=== PATIENT | male | born 1995 | race African-American/Black ===

== ENCOUNTER 2018-11-08 02:18 | Observation (INO) | payer SELFPAY ==
--- NOTE | 2018-11-08 02:39 | ED ---
Bite Injury/Animal - HPI Summary HPI Summary: The patient is a 23 y/o M presenting to [facility] with a chief complaint of multiple bite wounds on his left wrist unwarranted from his dog this morning at 0046. He states that they were getting ready for bed when the four year-old dog suddenly started growling, then clenched onto his wrist with a series of bites involving some twisting. There are six puncture wounds primarily near the distal left wrist and some superficial cuts on the upper forearm. There is swelling and erythema on the radial side of the wrist where the deepest puncture has occurred. He denies numbness or tingling in the hand, but there is decreased ROM of the wrist with supination and pronation as well as flexion and extension. There is mild pain with movement at the elbow, and the pain radiates to the left shoulder. The aching pain is currently rated 5/10 in severity. He takes the blood thinner Diclofenac for herniated discs, so the wounds have not stopped bleeding since incident. The dog is vaccinated for rabies, and the patient is UTD on his tetanus shot. The dog has never bite anyone before this. - History of Current Complaint Chief Complaint: EDAnimalBite Stated Complaint: DOG BITE PER PT Time Seen by Provider: 11/08/18 02:28 Hx Obtained From: Patient Onset of Injury: Happened hours ago - at 0046, Still Present Type of Bite: Animal - dog, owned by patient Hx of Bite: Unprovoked Has Animal Been Immunized?: Yes Severity Initially: Severe Severity Currently: Severe Pain Intensity: 5 Pain Scale Used: 0-10 Numeric Character: Puncture Aggravating Factor(s): Other - supination/pronation and flexion/extension of wrist, movement of elbow Alleviating Factor(s): Rest Associated Signs And Symptoms: Positive: Erythema - near site of swelling at largest puncture wound, Swelling - at largest puncture wound, Limited ROM - difficulty with supination/pronation and flexion/extension of wrist. Negative: Numbness/Tingling - Allergies/Home Medications Allergies/Adverse Reactions: Allergies Allergy/AdvReac Type Severity Reaction Status Date / Time haloperidol [From Haldol] Allergy Unknown Verified 11/08/18 02:20 Reaction Details Home Medications: Home Medications Cyclobenzaprine TAB* [Flexeril 10 MG TAB*] 5 mg PO BID 11/08/18 [History Confirmed 11/08/18] Diclofenac Sodium EC TAB* [Voltaren EC TAB*] 50 mg PO BID 11/08/18 [History Confirmed 11/08/18] FLUoxetine CAP* [Prozac CAP*] 40 mg PO DAILY 11/08/18 [History Confirmed ] Gabapentin 400 mg PO BID PRN 11/08/18 [History Confirmed 11/08/18] Methocarbamol TAB* [Robaxin 500 MG TAB*] 1,500 mg PO BID 11/08/18 [History Confirmed 11/08/18] Propranolol TAB* [Inderal TAB*] 10 mg PO TID 11/08/18 [History Confirmed ] clonazePAM TAB(*) [Klonopin TAB(*)] 0.5 mg PO QID 11/08/18 [History Confirmed ] PMH/Surg Hx/FS Hx/Imm Hx Endocrine/Hematology History: Denies: Hx Diabetes Cardiovascular History: Denies: Hx Hypertension Musculoskeletal History: Reports: Hx Back Problems - herniated disc Opthamlomology History: Denies: Hx Legally Blind Psychiatric History: Reports: Hx Anxiety, Hx Depression, Hx Post Traumatic Stress Disorder - Surgical History Surgery Procedure, Year, and Place: none Infectious Disease History: No Infectious Disease History: Denies: Traveled Outside the [place] in Last 30 Days - Family History Known Family History: Negative: Cardiac Disease, Hypertension - Social History Alcohol Use: Rare Hx Substance Use: No Substance Use Type: Reports: None Hx Tobacco Use: No Smoking Status (MU): Never Smoked Tobacco Do You Chew or Dip Tobacco: No Have You Chewed or Dipped Tobacco in the LAST YEAR: No Review of Systems Positive: Decreased ROM - with supination/pronation and flexion/extension in the wrist, Other - burning pain from bite radiating from left wrist to left shoulder Positive: Other - five bite wounds primarily to left wrist and extending to the lower half of the forearm, swelling and erythema with active bleeding Negative: Numbness - or tingling All Other Systems Reviewed And Are Negative: Yes Physical Exam - Summary Physical Exam Summary: Appearance: well appearing, no pain distress Skin: warm, dry, reflects adequate perfusion Head/face: normal Eyes: EOMI, CHINEDU ENT: mucous membranes moist Neck: supple, non-tender Respiratory: CTA, breath sounds present Cardiovascular: RRR, pulses symmetrical Abdomen: non-tender, soft Bowel Sounds: present Musculoskeletal: Five linear puncture wounds near the left distal wrist measuring approximately 1cm in length, One circular coin-shaped puncture wound with swelling measuring 1cm in diameter on the distal radius, Superficial scattered abrasions on lower half of left forearm, decreased ROM in the left wrist in any direction Neuro: normal, sensory motor intact, A&Ox3 Triage Information Reviewed: Yes Vital Signs On Initial Exam: Initial Vitals Temp Pulse Resp BP Pulse Ox 98.2 F 91 16 147/83 97 11/08/18 02:21 11/08/18 02:21 11/08/18 02:21 11/08/18 02:21 11/08/18 02:21 Vital Signs Reviewed: Yes Procedures - Procedure Summary Procedure Summary: Wound care note: Patient sustained multiple puncture wounds to his left forearm from dog bite. A timeout was performed. Each was anesthetized with a total of 6 cc of 2% lidocaine with epinephrine. Each of the 6 puncture wounds was irrigated extensively by sterile saline through a 60 cc syringe and 18-gauge angiocatheter into each wound. A total of 1000 cc of irrigant was used. The forearm was then dressed with Kerlix wrap. He tolerated this well without complication. Diagnostics - Vital Signs Vital Signs Temp Pulse Resp BP Pulse Ox 11/08/18 02:21 98.2 F 91 16 147/83 97 - Laboratory Lab Statement: Any lab studies that have been ordered have been reviewed, and results considered in the medical decision making process. - Radiology Left Forearm XR Radiology Interpretation Completed By: Radiologist Summary of Radiographic Findings: Depressed fracture of distal radius. Small amount of gas in soft tissue. ED physician has reviewed this report. Bite Injury Course/Dx - Course Course Of Treatment: Nurses notes reviewed. Multiple wounds in the left forearm with exquisite tenderness. X-ray shows gas in the soft tissues and a depressed fracture in the distal radius consistent with tooth injury. IV ampicillin was given here and the orthopedic surgeon was contacted. The wounds were irrigated extensively. Orthopedic surgeon will, at 6 AM and evaluate for possible operative plan versus admission and IV antibiotics. - Diagnoses Differential Diagnosis/HQI/PQRI: Positive: Crush Injury, Fracture, Laceration, Puncture Provider Diagnosis: Distal radial fracture, Dog bite of left forearm, Crushing injury of forearm, left - Provider Notifications Discussed Care Of Patient With: Abilio Andino - orthopedics Time Discussed With Above Provider: 04:00 Instructed by Provider To: Other - I consulted Dr. Andino to review the patient 's XR. He will call back to reconsult. At 0420, Dr. Andino returns the call and accepts surgical consult. Dr. Andino is speaking with the patient in the ED at 0630. Discharge - Sign-Out/Discharge Documenting (check all that apply): Patient Departure - Patient will be [place] [facility] [place]. Patient Received Moderate/Deep Sedation with Procedure: No - Discharge Plan Condition: Fair Disposition: ADMITTED TO [facility] Referrals: [facility] [Outside] [facility] [Outside] - Billing Disposition and Condition Condition: FAIR Disposition: Admitted to [facility] - Attestation Statements Document Initiated by Munir: Yes Documenting Scribe: Rena Ma Provider For Whom Munir is Documenting (Include Credential): Dr. Mxa Talavera MD Scribe Attestation: IRena, scribed for Dr. Max Talavera MD on 11/08/18 at 0653. Scribe Documentation Reviewed: Yes Provider Attestation: The documentation as recorded by the Rena mccain accurately reflects the service I personally performed and the decisions made by me, Dr. Max Talavera MD Status of Scribe Document: Viewed
[2018-11-08] MEDS ORDERED: Lidocaine 2% EPI 1:200000 MPF*10-20 ML VIAL ONE (02:52)
[2018-11-08] MEDS ORDERED: Lidocaine 2% EPI 1:200000 MPF* 10 ML VIAL INJ ONE (02:52)
[2018-11-08] MEDS ORDERED: Ampicillin ADVAN(*) 2 GM in NS 0.9% 100 ML* 100 ML IVPB ONE (02:53)
[2018-11-08] MEDS ORDERED: Morphine 4 MG/ML VIAL (1 ml) 4 MG/ML VIAL IV ONE (02:53)
[2018-11-08] MEDS ORDERED: Ketorolac INJ* 30 MG/ML 1 ML VIAL IV PUSH ONE (02:53)
[2018-11-08] MEDS ORDERED: HYDROcodone/ACETAMIN 5-325 MG* 1 TAB PO ONE (03:54)
[2018-11-08] MEDS ORDERED: HYDROmorphone INJ1* 1 MG/ML SYRINGE IV ONE (05:05)
[2018-11-08] MEDS ORDERED: diPHENhydraMINE IV* 50 MG/ML 1 ml VIAL (BENADRYL) IV PRN (07:10)
[2018-11-08] MEDS ORDERED: Ondansetron INJ* 2 MG/ML VIAL IV PRN (07:10)
[2018-11-08] MEDS ORDERED: Acetaminophen TAB* 325 MG PO PRN (07:10)
[2018-11-08] MEDS ORDERED: Zosyn per Pharmacy* NOTE FOLLOW UP SCH (08:00)
[2018-11-08] MEDS: Morphine 4 MG/ML VIAL (1 ml) 4 MG/ML VIAL IV PRN ×3 (08:01→23:56)
[2018-11-08] MEDS: NS 0.9% 1000 ML** 1,000 ML IV SCH ×2 (08:52→22:34)
--- NOTE | 2018-11-08 08:52 | HP ---
HISTORY AND PHYSICAL: DATE OF ADMISSION: 11/08/18 REASON FOR ADMISSION: Dog bite, left wrist. HISTORY: The patient is a 23-year-old man, right hand dominant, with multiple medical problems, who owns a pit bull, who just after midnight this morning was bit by his pit bull. Pit bull held on for some period of time. Multiple lacerations were noted. The patient was brought to the emergency room. Emergency room noted multiple lacerations. Got x-rays which showed a fracture. Orthopedic Surgery was called. The patient was given antibiotics immediately in the emergency room, ampicillin. Lacerations were washed out by emergency room staff. The patient does not know if he had any numbness prior to local anesthesia being infused. The patient reports pain decreased with pain control narcotic medications received in the emergency room. The patient reports the pit bull's vaccinations were up-to-date and he had appropriate rabies shots. 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 PAST MEDICAL HISTORY: PTSD, anxiety, depression, paranoia, recent past lumbar spine disk herniation. PAST SURGICAL HISTORY: Adenoidectomy, excision of wisdom teeth. MEDICATIONS: 1. Methocarbamol. 2. Diclofenac p.r.n. 3. Gabapentin. 4. Clonazepam. 5. Fluoxetine. 6. Propranolol. 7. Cyclobenzaprine. ALLERGIES: HALDOL (dystonic reaction). SOCIAL HISTORY: The patient lives with a roommate. He does not smoke. He is unemployed. He owns a pit bull, and the pit bull's shots are up-to-date. The patient does not smoke cigarettes. REVIEW OF SYSTEMS: No headache, shortness of breath, chest pain, or heart palpitations. No other joint pain. The patient does have lower back pain. No other numbness and tingling besides about the radial aspect of the left wrist and hand. PHYSICAL EXAMINATION GENERAL: No acute distress, alert and oriented, appropriate mood and affect, appropriate dress and hygiene, nonantalgic gait, well-coordinated bilateral upper and lower extremities. Nontoxic appearing. VITAL SIGNS: Pulse rate 75, blood pressure 97/62 with an O2 sat of 96%. Body temperature 98.2 degrees Fahrenheit temporal. EXTREMITIES: Left upper extremity exam shows multiple lacerations about the left wrist or just proximal to the radiocarpal joint. The largest is directly ulnar and then there are lacerations directly radial and radial dorsal. No significant drainage from these wounds. No significant pain with passive range of motion of the wrist joint and passive range of motion of the fingers, all fingers left hand. Sensory nerve exam reveals decreased sensation in the distribution of the radial sensory nerve. Intact sensation to the median nerve and the dorsal sensory branch of the ulnar nerve and the ulnar nerve proper. Motor intact to all distal motor branches, AIN, PIN, ulnar nerve. The patient is able to flex and extend all fingers. With the thumb extended, the patient had good tension on the EPL as well as on the EPB and the APL. EPB and APL tendons are close to that radial most laceration site. IMAGING: X-ray views of the patient's left wrist, 2 views, obtained in the emergency room were reviewed by me. These are actually forearm views and not wrist views. These show what look to be a small fracture, likely indention, impaction type focal fracture about the radial aspect of the distal radius, likely corresponding to that location of the radial laceration site. ASSESSMENT: 1. Dog bite injury, left distal forearm or wrist. 2. Open fracture, left distal radius. PLAN: 1. This dog bite injury has already been treated with irrigation in the emergency room and antibiotics, IV, appropriately. 2. The patient has no sign of clear tendon or neurovascular injury besides a possible injury to the superficial radial nerve. 3. While treatment of these is not necessarily codified, when fractures in the setting of bite injuries are significant enough to require fixation, they are treated as open fractures. This fracture will certainly not require a fixation ; however, the involvement of bone in the dog bite makes it reasonable to do a debridement and a more thorough irrigation in the operating room. 4. I placed an iodine-soaked gauze over the lacerations and followed that with a dry sterile dressing. 5. The patient will be placed in a removable wrist brace or a volar splint for comfort. 6. The patient will be allowed to eat from now until 8 a.m. and then will be n.p.o. 7. I will plan on taking the patient to the operating room at the end of the afternoon for an irrigation, debridement, and exploration left distal forearm. 8. The patient will be admitted to my service preoperatively. He will be n.p.o. after 8 a.m. We will control his pain. I will switch him to a broader coverage Zosyn antibiotic as we do not have Unasyn at this hospital. The patient can be restarted on home meds. [id number]/[facility] #: [id number] [facility]
[2018-11-08] MEDS ORDERED: Piperacillin/Tazobac ADVAN(*) 3.375 GM in NS 0.9% 100 ML* 100 ML IVPB ONE (09:30)
[2018-11-08] MEDS: ZOSYN 3.375 GM Q8H per EXTENDED INFUSION IVPB SCH ×4 (16:00→22:34)
[2018-11-08] MEDS ORDERED: Propranolol TAB* 10 MG PO ONE (16:56)
[2018-11-08] MEDS ORDERED: Rocuronium* 10 MG/ML VIAL ONE (17:04)
[2018-11-08] MEDS ORDERED: fentaNYL* 50 MCG/ML 5 ML VIAL (250 MCG VIAL) ONE (17:04)
[2018-11-08] MEDS ORDERED: Midazolam* 1 MG/ML 5 ML VIAL (5 MG) ONE (17:04)
[2018-11-08] MEDS ORDERED: Lidocaine 2% PF * 5 ML VIAL ONE (17:05)
[2018-11-08] MEDS ORDERED: Propofol* 10 MG/ML 20 ML BTL ONE (17:05)
[2018-11-08] MEDS ORDERED: Ketorolac INJ* 30 MG/ML 1 ML VIAL IV PRN (18:24)
[2018-11-08] MEDS ORDERED: Naloxone* 0.4 MG/ML 1 ML VIAL IV PRN (18:24)
[2018-11-08] MEDS ORDERED: DiMENhydriNATE IV* 50 MG/ML VIAL IV PUSH PRN (18:24)
[2018-11-08] MEDS ORDERED: Acetaminophen IV 1GM/100ML * 1,000 MG/100 ML VIAL IVPB ONE (18:24)
[2018-11-08] MEDS ORDERED: Ondansetron INJ* 2 MG/ML VIAL ONE (18:34)
[2018-11-08] MEDS ORDERED: Neostigmine Methylsulfate* 3 MG/3 ML SYRINGE ONE (18:37)
[2018-11-08] MEDS ORDERED: Glycopyrrolate IV* 0.2 MG/ML 1 ML VIAL ONE (18:37)
[2018-11-08] MEDS ORDERED: Gabapentin CAP(*) 400 MG PO PRN (19:00)
[2018-11-08] MEDS ORDERED: Ketorolac INJ* 30 MG/ML 1 ML VIAL ONE (19:11)
[2018-11-08] MEDS ORDERED: Acetaminophen IV 1GM/100ML * 100 ML ONE (19:11)
[2018-11-08] MEDS ORDERED: fentaNYL* 50 MCG/ML 2 ML VIAL (100 MCG VIAL) ONE (19:11)
[2018-11-08] MEDS: fentaNYL* 50 MCG/ML 2 ML VIAL (100 MCG VIAL) IV PRN ×2 (19:18→19:37)
[2018-11-08] MEDS: oxyCODONE/Acetamin 5/325 MG* TAB PO PRN (20:33)
--- NOTE | 2018-11-09 00:30 | OP ---
OPERATIVE REPORT: DATE OF OPERATION: 11/08/18 - Inpatient, room 415-02 DATE OF : 89 SURGEON: Abilio Andino MD CONTINUOUS MINING MACHINE COAL MINER: ALENA Carr A physician anesthesiology physician assistant was required for the length of the procedure for assistance with positioning, retraction, irrigation, and closure. ANESTHESIOLOGIST: Dr. Telly Ferro. ANESTHESIA: General anesthesia. PRE-OP DIAGNOSES: 1. Open fracture, left distal radius. 2. Multiple dog bite wounds, open, left distal forearm. POST-OP DIAGNOSES: 1. Open fracture, left distal radius. 2. Multiple dog bite wounds, open, left distal forearm. OPERATIVE PROCEDURE: Irrigation and debridement left distal forearm, multiple incisions, including debridement skin, subcutaneous tissue, muscle, and bone. ANTIBIOTICS: Zosyn 3.75 g scheduled dose, infusing just prior to incision. IV FLUIDS: See Anesthesia note. TOURNIQUET TIME: 37 minutes at 250 mmHg, left upper arm. [id number] TIME: 33 minutes. SPECIMEN: 1. Small sample of bone from the fracture site. 2. Anaerobic and aerobic cultures from a variety of wounds. IMPLANTS: Iodoform packing, 0.25 inch, was placed into 5 different incision sites where there had been lacerations. COMPLICATIONS: None. ESTIMATED BLOOD LOSS: Minimal. INDICATION FOR THE PROCEDURE: The patient is a 23-year-old man, right-hand dominant, without multiple medical problems, who was bit by a pit bull early this morning just after midnight. The pit bull held on for some period of time. Multiple lacerations. The patient was brought to the emergency room. In the emergency room, there was noted a sort of impaction puncture fracture of the distal radius along its radial aspect. Orthopedic Surgery was called. I was on- call overnight. I came in to see the patient just at the start of the day and saw him around 6 a.m. I noted no purulence. Multiple lacerations about the left distal forearm and a fracture on x-ray making this an open fracture. The ED staff had already provided a dose of ampicillin IV antibiotics and irrigated the wounds in the emergency room. The patient has multiple psychiatric diagnoses, but no significant past medical history otherwise. I admitted the patient to my service, wiped the incisions with Providone/Iodine and placed 4x4s with Providone/Iodine on all open lacerations and a compressive dressing followed by a removable wrist brace. The patient was kept n.p.o. Discussed with the patient preoperatively the potential risks and infections including bleeding, infection, nerve or blood vessel injury, persistent infection, osteomyelitis, need for reoperation. DESCRIPTION OF PROCEDURE: The patient signed an operative consent in preoperative holding. Operative extremity was marked in preoperative holding. The patient was taken back to the operating room and the patient was kept on a stretcher. The patient was sedated and intubated. Hand table was applied. Tourniquet was applied around the left upper arm. Left upper extremity was prepped and draped. Surgical time-out was performed. Esmarch applied and tourniquet was elevated. I had determined preoperatively that the radial laceration about the distal forearm was the one that would communicate with the open fracture. I extended both proximal and distal to 5 different lacerations around the radial , dorsal, and ulnar distal forearm, being cognizant of all relevant anatomy. I dissected down into each. With regards to the radial laceration site, I extended that laceration a little bit more proximal and distal and extended and found a path down to the open fracture. It was quite an impressive divot in the bone, wider of diameter than the freer elevator. I used curettes to debride around that hole in the bone. The hole in the bone did not go all the way through 2 cortices. There were no tooth fragments or any other foreign body visible. I took a bit of bone that I removed with a curette and we sent that to pathology. I used culture swabs, aerobic and anaerobic in multiple wounds, with fluid from multiple wounds. I irrigated with cystoscopy tubing all 5 open laceration wound sites. We used a total of 3 L to do this. We then closed loosely each one of the 5 laceration sites. We did this after placing Iodoform packing into each one of them. The radial laceration site had an Iodoform packing traveling down the path to bone. I placed dressing consisting of Adaptic, 4x4s, sterile Webril, non-sterile Webril and a volar plaster splint. The patient was awakened, extubated and brought to the PACU. DISPOSITION: The patient was readmitted to our service. He will be continued on IV antibiotics, Zosyn. We will continue his psychiatric medications. Pain control as needed with oral and IV pain medications. The patient will rest in a volar plaster splint with arm elevated. We will discharge the patient on oral antibiotics when he is clearly improved. The patient will then follow up in the office for wound checks. [id number]/[facility] #: [id number] [facility]
[2018-11-09] MEDS: oxyCODONE/Acetamin 5/325 MG* TAB PO PRN ×3 (03:35→18:17)
[2018-11-09] MEDS: ZOSYN 3.375 GM Q8H per EXTENDED INFUSION IVPB SCH ×6 (06:25→22:26)
[2018-11-09] MEDS: Morphine 4 MG/ML VIAL (1 ml) 4 MG/ML VIAL IV PRN ×2 (08:45→22:24)
[2018-11-09] MEDS: Methocarbamol TAB* 500 MG PO SCH ×2 (08:49→21:49)
[2018-11-09] MEDS: FLUoxetine CAP* 20 MG PO SCH (08:49)
[2018-11-09] MEDS: clonazePAM TAB(*) 0.5 MG PO SCH ×4 (08:50→21:49)
[2018-11-09] MEDS: Cyclobenzaprine TAB* 10 MG PO SCH ×2 (08:50→21:50)
[2018-11-09] MEDS: Propranolol TAB* 10 MG PO SCH ×3 (08:54→20:02)
[2018-11-09] MEDS: Diclofenac Sodium EC TAB* 25 MG PO SCH ×2 (08:54→21:49)
[2018-11-09 09:58] LABS: ABS Basophils 0.1 10^3/ul (0-0.2); ABS Eosinophils 0.1 10^3/ul (0-0.6); ABS Lymphocytes 2.1 10^3/ul (1.0-4.8); ABS Monocytes 0.9 10^3/ul (0-0.8); ABS Neutrophils 6.2 10^3/ul (1.5-7.7); ABS Nucleated RBC 0 10^3/ul; Eosinophil % 1.1 %; Hematocrit 40 % (36-46); Hemoglobin 13.8 g/dL (14.0-18.0); Lymphocyte % 22.5 %; Mean Corpuscular HGB Conc 34 g/dL (31-36); Mean Corpuscular Hemoglobin 32 pg (27-31); Mean Corpuscular Volume 93 fL (80-94); Mean Platelet Volume 6.6 fL (7.4-10.4); Nucleated Red Blood Cells % 0; Platelet Count 278 10^3/uL (150-450); Red Blood Count 4.36 10^6 /uL (4.18-5.48); Red Cell Distribution Width 13 % (10.5-15); White Blood Count 9.4 10^3/uL (3.5-10.8)
[2018-11-09] MEDS: NS 0.9% 1000 ML** 1,000 ML IV SCH ×2 (11:45→23:03)
[2018-11-09 12:04] LABS: Erythrocyte Sed Rate 2 mm/Hr (0-14)
--- NOTE | 2018-11-09 12:53 | PN ---
Progress Note - Progress Note Date of Service: 11/09/18 SOAP: Subjective: []Patient seen at bedside after nursing reported patient with increased pain which caused him to undress his dressings. He states he felt quite a bit of pressure and it feels better now. He is on meds for chronic back pain and psych meds as well. He is amenable to having the arm re dressed. Objective: [] Vital Signs Temp 97.7 F 11/09/18 07:35 Pulse 63 11/09/18 11:43 Resp 16 11/09/18 12:06 BP 100/52 11/09/18 11:43 Pulse Ox 100 11/09/18 11:43 Intake & Output 11/08/18 11/09/18 11/09/18 18:59 06:59 18:59 Intake Total 420 2307 Output Total 0 Balance 420 2307 Weight 215 lb 9.793 oz Intake: IV Fluids 1922 LR 1300 NS (0.9%) 622 IVPB 105 ABX - ZOSYN 105 Oral 420 280 Output: Urine 0 Other: # Bowel Movements 480 Estimated Blood Loss MINIMAL Comment Laboratory Results - last 24 hr 11/09/18 11/09/18 09:43 09:43 WBC 9.4 RBC 4.36 Hgb 13.8 L Hct 40 MCV 93 MCH 32 H MCHC 34 RDW 13 Plt Count 278 MPV 6.6 L Neut % (Auto) 65.7 Lymph % (Auto) 22.5 Stoddard % (Auto) 10.0 Eos % (Auto) 1.1 Baso % (Auto) 0.7 Absolute Neuts (auto) 6.2 Absolute Lymphs (auto) 2.1 Absolute Monos (auto) 0.9 H Absolute Eos (auto) 0.1 Absolute Basos (auto) 0.1 Absolute Nucleated RBC 0 Nucleated RBC % 0 ESR 2 C-Reactive Protein 77.47 H Left forearm with mild edema- nothing excessive moving fingers- full sensation throughout all fingers and hand/ radial sensory nerve distribution as well old bloody drainage on dressings, no purulence, denia are still in wounds Assessment: []s/p dog bite with puncture wound into distal radius, multiple soft tissue wounds s/p I&D POD #1 Plan: []IV Zosyn until at least 11/10 Added Toradol IV and increased Morphine for pain. New light kerlex/ volar splint and SUNIL reapplied and comfortable Possible discharge home Monday per Dr. Andino
[2018-11-09] MEDS: Ketorolac INJ* 30 MG/ML 1 ML VIAL IV PUSH PRN ×2 (14:06→21:51)
[2018-11-10] MEDS: ZOSYN 3.375 GM Q8H per EXTENDED INFUSION IVPB SCH ×6 (06:05→22:56)
[2018-11-10] MEDS: Morphine 4 MG/ML VIAL (1 ml) 4 MG/ML VIAL IV PRN (07:08)
[2018-11-10] MEDS: Methocarbamol TAB* 500 MG PO SCH ×2 (08:14→22:47)
[2018-11-10] MEDS: Cyclobenzaprine TAB* 10 MG PO SCH ×2 (08:15→22:44)
[2018-11-10] MEDS: FLUoxetine CAP* 20 MG PO SCH (08:15)
[2018-11-10] MEDS: Propranolol TAB* 10 MG PO SCH ×2 (08:15→13:36)
[2018-11-10] MEDS: Diclofenac Sodium EC TAB* 25 MG PO SCH ×2 (08:17→22:48)
[2018-11-10] MEDS: clonazePAM TAB(*) 0.5 MG PO SCH ×4 (08:18→22:43)
[2018-11-10] MEDS ORDERED: Naproxen TAB* 250 MG PO STA (10:10)
--- NOTE | 2018-11-10 10:19 | PN ---
Progress Note - Progress Note Date of Service: 11/10/18 SOAP: Subjective: No complaints. Acknowledges he has had pain. Feels forearm is improving. Objective: LUE: - Laceration sites x [address] - Bloody drainage from all but straight dorsal, proximal lac site where there is some yellow drainage, but this may be fat necrosis or serous rather than pus. Less tender to palpation at that lac rather than the others. - Intact, but perhaps decreased sensation in SRN distribution - Mild swelling left distal forearm Selected Entries 11/10/18 07:50 Temperature 97.0 F Pulse Rate 44 Respiratory 16 Rate Blood Pressure 96/53 (mmHg) O2 Sat by Pulse 100 Oximetry Laboratory Tests 11/09/18 11/09/18 09:43 09:43 WBC 9.4 Neut % (Auto) 65.7 C-Reactive Protein 77.47 H Assessment: POD 2 I&D left distal forearm Open fracture left distal radius Dog bite with 5 open lacerations left distal forearm Plan: - Continue Zosyn IV - No indication for repeat I&D now - I backed out the Iodoform packing 1cm each. 1 of the 5 fell out of wound. - Convert IV to all oral pain medications to transition to home discharge. - CBC, CRP, ESR pending and we will compare CRP to yesterday's. - Consider discharge tomorrow on oral antibiotics if pain controlled by oral meds, labs okay, improved pain and no new swelling
[2018-11-10 10:49] LABS: ABS Basophils 0 10^3/ul (0-0.2); ABS Eosinophils 0.1 10^3/ul (0-0.6); ABS Lymphocytes 2.2 10^3/ul (1.0-4.8); ABS Monocytes 0.7 10^3/ul (0-0.8); ABS Neutrophils 3.9 10^3/ul (1.5-7.7); ABS Nucleated RBC 0 10^3/ul; Eosinophil % 1.8 %; Hematocrit 40 % (36-46); Hemoglobin 13.5 g/dL (14.0-18.0); Lymphocyte % 31.5 %; Mean Corpuscular HGB Conc 34 g/dL (31-36); Mean Corpuscular Hemoglobin 32 pg (27-31); Mean Corpuscular Volume 93 fL (80-94); Nucleated Red Blood Cells % 0.1; Platelet Count 266 10^3/uL (150-450); Red Blood Count 4.28 10^6 /uL (4.18-5.48); Red Cell Distribution Width 13 % (10.5-15); White Blood Count 6.9 10^3/uL (3.5-10.8)
[2018-11-10] MEDS: oxyCODONE/Acetamin 5/325 MG* TAB PO PRN ×4 (11:01→19:44)
[2018-11-10 12:17] LABS: Erythrocyte Sed Rate 6 mm/Hr (0-14)
[2018-11-10] MEDS: NS 0.9% 1000 ML** 1,000 ML IV SCH (13:38)
[2018-11-11] MEDS: oxyCODONE/Acetamin 5/325 MG* TAB PO PRN ×4 (00:16→15:10)
[2018-11-11] MEDS: NS 0.9% 1000 ML** 1,000 ML IV SCH ×2 (01:21→13:07)
[2018-11-11] MEDS: Propranolol TAB* 10 MG PO SCH ×3 (03:01→13:11)
[2018-11-11] MEDS: ZOSYN 3.375 GM Q8H per EXTENDED INFUSION IVPB SCH ×4 (06:23→15:02)
[2018-11-11] MEDS: FLUoxetine CAP* 20 MG PO SCH (07:46)
[2018-11-11] MEDS: Methocarbamol TAB* 500 MG PO SCH (07:47)
[2018-11-11] MEDS: clonazePAM TAB(*) 0.5 MG PO SCH ×2 (07:48→13:10)
[2018-11-11] MEDS: Cyclobenzaprine TAB* 10 MG PO SCH (07:48)
[2018-11-11] MEDS: Diclofenac Sodium EC TAB* 25 MG PO SCH (07:50)
--- NOTE | 2018-11-11 10:31 | PN ---
Progress Note - Progress Note Date of Service: 11/11/18 SOAP: Subjective: Pain decreased, managed on oral narcotics. Objective: LUE: - Incisions/lacs with serosanguinous drainage - NVID - Trace/mild distal forearm soft tissue swelling Microbiology 11/08/18 18:41 Axilla Left Gram Stain - Final 11/08/18 18:41 Wound Anaerobic Culture - Preliminary No Growth Day 3 11/08/18 18:41 Axilla Left Wound Culture - Preliminary No Growth Day 3 Selected Entries 11/11/18 07:32 Temperature 97.5 F Pulse Rate 49 Respiratory 16 Rate Blood Pressure 109/55 (mmHg) O2 Sat by Pulse 99 Oximetry Laboratory Tests 11/09/18 11/09/18 11/10/18 09:43 09:43 10:24 WBC 9.4 6.9 Neut % (Auto) 65.7 56.3 ESR 2 6 C-Reactive Protein 77.47 H 11/10/18 10:24 WBC Neut % (Auto) ESR C-Reactive Protein 92.21 H Assessment: POD 3 I&D dog bite L distal forearm, open fracture distal radius Plan: - I ordered new labs for today, just to make sure CRP is not greatly increased - As long as CRP is reasonable, patient will be discharged today on oral antibiotics, Augmentin - I removed packing from wounds. Patient now has in place a DSD and volar wrist splint - At home, he will do a dressing change once daily - Follow up with me in clinic with me in on November 19-
[2018-11-11 10:51] LABS: ABS Basophils 0 10^3/ul (0-0.2); ABS Eosinophils 0.2 10^3/ul (0-0.6); ABS Lymphocytes 2.5 10^3/ul (1.0-4.8); ABS Monocytes 0.6 10^3/ul (0-0.8); ABS Neutrophils 3.4 10^3/ul (1.5-7.7); ABS Nucleated RBC 0 10^3/ul; Eosinophil % 2.4 %; Hematocrit 39 % (36-46); Hemoglobin 13.4 g/dL (14.0-18.0); Lymphocyte % 37.6 %; Mean Corpuscular HGB Conc 34 g/dL (31-36); Mean Corpuscular Hemoglobin 32 pg (27-31); Mean Corpuscular Volume 92 fL (80-94); Mean Platelet Volume 6.9 fL (7.4-10.4); Nucleated Red Blood Cells % 0.1; Platelet Count 278 10^3/uL (150-450); Red Blood Count 4.24 10^6 /uL (4.18-5.48); Red Cell Distribution Width 13 % (10.5-15); White Blood Count 6.7 10^3/uL (3.5-10.8)
[2018-11-11 11:56] LABS: Erythrocyte Sed Rate 8 mm/Hr (0-14)
[2018-11-11] MEDS ORDERED: Nicotine PATCH 7 MG/24 HR* PATCH TRANSDERM SCH (13:00)
[2018-11-11 15:53] VITALS: BP 111/68
[2018-11-11] MEDS ORDERED: Nicotine Patch Removal NOTE PATCH OFF SCH (21:00)
--- NOTE | 2018-11-12 20:54 | DS ---
DISCHARGE SUMMARY: DATE OF ADMISSION: 11/08/18 DATE OF DISCHARGE: 11/11/18 ADMITTING PHYSICIAN: Abilio Andino MD * (DICTATED BY ALENA CANALES) ADMITTING DIAGNOSES: 1. Dog bite, left forearm. 2. Posttraumatic stress disorder. 3. Anxiety. 4. Depression. 5. Paranoia. DISCHARGE DIAGNOSES: 1. Status post I and D of left distal forearm. 2. Posttraumatic stress disorder. 3. Anxiety. 4. Depression. 5. Paranoia. BRIEF HISTORY: Mr. Batista is a 23-year-old male, who sustained injury when he was bitten by his pit bull on 11/08/18. He sustained multiple lacerations and an open fracture. He was transported to [facility] Emergency Room on day of injury. HOSPITAL COURSE: Mr. Batista was admitted to [facility] on 11/08/18 after sustaining multiple lacerations to his left arm and wrist by his own dog. He also sustained an open fracture of the left distal radius. He underwent an incision and drainage of the left distal forearm on 11/08/[address] Andino. The wounds were packed. Postoperatively, he recovered on the short- stay surgical unit. He was started on Zosyn. Postoperative day #1, he remained on Zosyn. He was having pain issues, so Toradol was added to his medication regimen and the dosage of morphine was increased. On postop day #2, pain was better controlled. Some of the packing in the wounds was removed. There was no sign of infection. Postoperative day #3, pain was managed on p.o. narcotics, wound cultures showed no growth and the remaining packing was removed. He was at that time orthopedically and medically stable to be discharged home. PHYSICAL EXAMINATION: On physical exam of his left upper extremity, incision/ lacerations are with serosanguineous drainage. Neurovascularly intact distally. There is trace-mild distal forearm soft tissue swelling. He has good motion in his fingers. Vital Signs: On day of discharge, temperature 97.5 degrees Fahrenheit, pulse rate 49, respiratory rate 16, blood pressure 109/ 55. LABORATORY DATA: Cultures that were taken of the wound, anaerobic culture, Gram stain, wound culture showed no growth. DISCHARGE MEDICATIONS: 1. Methocarbamol. 2. Diclofenac. 3. Gabapentin. 4. Clonazepam. 5. Fluoxetine. 6. Propranolol. 7. Cyclobenzaprine. 8. Percocet 5/325 one tab p.o. q.4 to 6 hours p.r.n. pain. 9. Augmentin 500 mg t.i.d. for 10 days. CONDITION ON DISCHARGE: Stable. DISCHARGE INSTRUCTIONS: Mr. Batista is a 23-year-old male postoperative day #3 status post I and D of the left distal forearm. He is orthopedically and medically stable to be discharged home. Wounds are healing appropriately and there is no sign of infection at this time. He has stable vital signs and labs. He has restarted on his home medications. He will use Percocet for pain control and Augmentin 500 mg t.i.d. for infection prophylaxis. He will perform daily dressing changes and monitor his wounds. He will plan on following up with Dr. Andino in approximately 10 days. He was instructed to call Dr. Andino or go immediately to the ER should he develop any new fever, chills, incision pain, redness, or drainage. He was instructed to go immediately to the ER should he develop chest pain or shortness of breath. ALENA CANALES [id number]/[facility] #: [id number] [place]IM[place]
== END 2018-11-11 16:10 | disposition home or self-care (01) | DRG 512 ==
LOC: ED 02:18 → MED 07:10 → INTOOBSV 07:10
PROVIDERS: ADMIT Orthopaedic Surgery; ATTEND Orthopaedic Surgery
DX: S52.502B Unspecified fracture of the lower end of left radius, initial encounter for open fracture type I or II (principal); M86.10 Other acute osteomyelitis, unspecified site; F43.10 Post-traumatic stress disorder, unspecified; F41.9 Anxiety disorder, unspecified; F32.9 Major depressive disorder, single episode, unspecified; F22 Delusional disorders; W54.0XXA Bitten by dog, initial encounter; Y92.9 Unspecified place or not applicable; Z79.899 Other long term (current) drug therapy; Z88.8 Allergy status to other drugs, medicaments and biological substances
CPT/HCPCS: 36415; 85025; 85652; 86140; 87070; 87073; 87205; 88307; 88311; 96365; 96375; 96376; 99283; A9270-GY; G0378; J1170; J1885; J2250; J2270; J2405; J2543; J2704; J2710; J3010